=== PATIENT | female | born 1970 | race Caucasian/White ===

== ENCOUNTER 2017-07-13 04:32 | Emergency (ER) | payer SELFPAY ==
[~2017-07-13] VITALS: Ht 167.6 cm; Wt 47.6 kg
[2017-07-13 04:55] VITALS: BP_SYST 118
--- NOTE | 2017-07-13 04:55 | NUR ---
Patient to [facility] for evaluation. Side rails up.
--- NOTE | 2017-07-13 05:00 | NUR ---
Patient AOx4, ambulatory, presents to ER with complaint of migraine, nausea, vomiting, and photosensitivity x1 week. Patient states pain 10/10. Per patient, currently taking Imitrex with no relief. No other symptoms or complaints at this time.
--- NOTE | 2017-07-13 05:15 | NUR ---
GAURANG Phillips at bedside for medical evaluation.
[2017-07-13] MEDS ORDERED: PROCHLORPERAZINE EDISYLATE 10 MG/2 ML VIAL IVP ONE (05:30)
[2017-07-13] MEDS ORDERED: DIPHENHYDRAMINE INJ 50 MG/ML VIAL IVP ONE (05:30)
[2017-07-13] MEDS ORDERED: HYDROmorphone 1 MG INJ. 1 MG/ML AMPUL IVP ONE (05:30)
--- NOTE | 2017-07-13 05:50 | NUR ---
# 20 gauge angiocath placed to RAC. Use of asceptic technique. Opsite placed over site. Blood return noted. Flushed with 10 cc of normal saline. No evidence of infiltration noted. Patient tolerated well.
--- NOTE | 2017-07-13 06:25 | NUR ---
No adverse reactions noted after medication administration. Will continue to monitor.
[2017-07-13 06:41] VITALS: BP_SYST 124
--- NOTE | 2017-07-13 06:41 | NUR ---
Patient given written and verbal discharge instructions and verbalizes understanding. ER MD discussed with patient the results and treatment provided. Patient in stable condition. ID arm band removed. IV catheter removed intact and dressing applied, no active bleeding. Rx of Fioricet given. Patient educated on pain management and to follow up with PMD. Pain Scale 0/10. Opportunity for questions provided and answered. Medication side effect fact sheet provided.
== END 2017-07-13 06:41 | disposition home or self-care (01) ==
LOC: SED 04:32
DX: G44.209 Tension-type headache, unspecified, not intractable (principal); G43.909 Migraine, unspecified, not intractable, without status migrainosus
CPT/HCPCS: 96374; 96375; 99284; J0780; J1200